=== PATIENT | male | born 1985 | race Caucasian/White ===

== ENCOUNTER 2018-10-31 08:44 | Emergency (ER) | payer SELFPAY ==
[~2018-10-31] VITALS: Ht 167.6 cm; Wt 74.9 kg
[2018-10-31 08:59] VITALS: BP 130/89; PULSE 87; RESP 16; Ht 167.6 cm; Wt 74.9 kg
[2018-10-31] MEDS ORDERED: SULF1TAB31 PO (09:42)
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
== END 2018-10-31 10:10 | disposition home or self-care (01) ==
LOC: FTE 08:44
DX: L98.9 Disorder of the skin and subcutaneous tissue, unspecified (principal)
CPT/HCPCS: 99283

== ENCOUNTER 2018-11-02 08:37 | Emergency (ER) | payer MEDICAID ==
[~2018-11-02] VITALS: Ht 167.6 cm; Wt 89.1 kg
[~2018-11-02 08:37] MED LIST: SULF1TAB31 PO
[2018-11-02 08:39] VITALS: BP 130/78; PULSE 78; RESP 18; Ht 167.6 cm; Wt 89.1 kg
[2018-11-02] MEDS ORDERED: NEOM28.33 TP (09:03)
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
== END 2018-11-02 09:18 | disposition home or self-care (01) ==
LOC: FTE 08:37
DX: Z48.00 Encounter for change or removal of nonsurgical wound dressing (principal)
CPT/HCPCS: 99281